=== PATIENT | male | born 1985 | race Caucasian/White ===

== ENCOUNTER 2017-04-21 08:48 | Emergency (ER) | payer OTHER ==
[2017-04-21 09:00] VITALS: BP 122/65
--- NOTE | 2017-04-21 09:44 | UC ---
Skin Complaint HPI - HPI Summary HPI Summary: Found tick on L thigh about midnight. Was outside at a wedding all day yesterday , also went hiking on 04/16/17. Mom pulled off, they are worried about the head. Brought in tick in jar of water, small and consistent with larval or nymph tick. - History of Current Complaint Chief Complaint: UCSkin Time Seen by Provider: 04/21/17 09:11 Stated Complaint: TICK BITE Hx Obtained From: Patient Onset/Duration: Sudden Onset Timing: Constant Onset Severity: Mild Current Severity: None Location: Discrete Aggravating: Nothing Alleviating: Nothing Associated Signs & Symptoms: Negative: Nausea, Vomiting, Fever, Chills, Rash Related History: Insect Bite/Sting - Allergy/Home Medications Allergies/Adverse Reactions: Allergies Allergy/AdvReac Type Severity Reaction Status Date / Time Cefaclor [From [facility]] Allergy Severe Hives Verified 02/17/14 15:51 Erythromycin Allergy Severe Vomiting Verified 02/17/14 15:51 Penicillins Allergy Severe Hives Verified 02/17/14 15:51 Bees Allergy Swelling Uncoded 09/30/14 13:27 Review of Systems Constitutional: Negative Skin: Other - tick Eyes: Negative ENT: Negative Respiratory: Negative Cardiovascular: Negative Gastrointestinal: Negative Genitourinary: Negative Motor: Negative Neurovascular: Negative Musculoskeletal: Negative Neurological: Negative Psychological: Negative All Other Systems Reviewed And Are Negative: Yes PMH/Surg Hx/FS Hx/Imm Hx Previously Healthy: Yes - Surgical History Surgical History: Yes Surgery Procedure, Year, and Place: HERNIA REPAIR, [place] Teeth Extraction, Undescended Testicle, Tonsils - Family History Known Family History: Positive: Hypertension - Social History Lives: Alone Alcohol Use: Occasionally Substance Use Type: None Substance Use Comment - Amount & Last Used: occassional Smoking Status (MU): Never Smoked Tobacco Have You Smoked in the Last Year: No - Immunization History Most Recent Tetanus Shot: UNKNOWN Physical Exam Triage Information Reviewed: Yes Appearance: Well-Appearing, No Pain Distress, Well-Nourished Vital Signs: Initial Vital Signs Temp 97.6 F 04/21/17 08:56 Pulse 73 04/21/17 08:56 Resp 18 04/21/17 08:56 BP 122/65 04/21/17 08:56 Pulse Ox 100 04/21/17 08:56 Vital Signs Reviewed: Yes Eye Exam: Normal Eyes: Positive: Conjunctiva Clear ENT Exam: Normal ENT: Positive: Normal ENT inspection, Hearing grossly normal, Pharynx normal, TMs normal Dental Exam: Normal Neck exam: Normal Respiratory Exam: Normal Respiratory: Positive: Chest non-tender, Lungs clear, Normal breath sounds, No respiratory distress, No accessory muscle use Cardiovascular Exam: Normal Cardiovascular: Positive: RRR, No Murmur Musculoskeletal Exam: Normal Neurological Exam: Normal Neurological: Positive: Alert Psychological Exam: Normal Skin Exam: Other - tick bite site benign, no tick parts, erythema, drainage, or streaking Course/Dx - Course Course Of Treatment: discussed low-risk nature of tick bite, did not recommend prophylaxis because of feeding less than 12 hours. Pt understands and agrees. - Diagnoses Provider Diagnoses: tick bite Discharge - Discharge Plan Condition: Stable Disposition: HOME Patient Education Materials: Tick Bite (ED) Referrals: Agustin Lubin MD [Primary Care Provider] - Additional Instructions: If you develop any of the following, please see your physician promptly: (1) Fever, chills, or generalized malaise associated with a headache. (2) A red round area at the site of the bite (or elsewhere) (3) Joint pain, joint swelling or generalized weakness. (4) Redness, swelling, or drainage at the site of the bite. Check yourself, your children and your pets for ticks whenever you've been in an area where ticks live. To remove a tick, grasp it firmly with some tweezers or a string in a slipknot as close to its head as possible and pull it steadily. Ticks do not have a typical "head" attached to their body. There are mouth parts sticking out which they use to feed. If there are mouth parts left behind in the wound there is NO increased risk of Lyme infection; however, the chances of a bacterial skin infection (cellulitis) are higher. If mouth parts remain after tick removal, the best thing to do is apply warm soaks to the area 3-4 times per day to encourage the skin to expel the foreign material. WHEN A TICK IS NOT ENGORGED AND HAS BEEN ON LESS THAN 24 HOURS - THE RISK FOR LYME IS NEGLIGIBLE. YOU CAN REMOVE THE TICK AND OBSERVE THE AREA ON YOUR OWN.
== END 2017-04-21 09:45 | disposition home or self-care (01) ==
LOC: UCEAST 08:48
DX: S70.362A Insect bite (nonvenomous), left thigh, initial encounter (principal); W57.XXXA Bitten or stung by nonvenomous insect and other nonvenomous arthropods, initial encounter; Y93.9 Activity, unspecified; Y92.9 Unspecified place or not applicable
CPT/HCPCS: 99211; G0463